=== PATIENT | female | born 1990 | race Asian ===

== ENCOUNTER 2018-01-19 22:09 | Emergency (ER) | payer SELFPAY ==
[~2018-01-19] VITALS: Ht 162.6 cm; Wt 54.4 kg
[2018-01-19 22:30] VITALS: BP 96/61
[2018-01-19] MEDS ORDERED: Lidocaine 1% 10mg/ml/Epi 0.005mg/ml 30ml vial INJ ONE (22:45)
[2018-01-19] MEDS ORDERED: IBUPROFEN600 MG ORAL (23:20)
[2018-01-19 23:30] VITALS: BP 99/62
[2018-01-19 23:35] VITALS: BP 99/62
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
== END 2018-01-19 23:25 | disposition home or self-care (01) ==
LOC: EDBD 22:09 → EMR 22:36
DX: S01.112A Laceration without foreign body of left eyelid and periocular area, initial encounter (principal); V43.62XA Car passenger injured in collision with other type car in traffic accident, initial encounter; Y92.410 Unspecified street and highway as the place of occurrence of the external cause
CPT/HCPCS: 99283